=== PATIENT | male | born 1970 | race Two or more races ===

== ENCOUNTER 2022-01-06 18:33 | Emergency (ER) | payer OTHER ==
[~2022-01-06] VITALS: Ht 175.3 cm; Wt 93.0 kg
== END 2022-01-06 19:36 | disposition home or self-care (01) ==
LOC: ER 18:33
DX: S83.91XA Sprain of unspecified site of right knee, initial encounter (principal); X58.XXXA Exposure to other specified factors, initial encounter; Y93.9 Activity, unspecified; Y92.9 Unspecified place or not applicable; Y99.9 Unspecified external cause status